=== PATIENT | male | born 1970 | race Caucasian/White ===

== ENCOUNTER 2023-09-30 08:14 | Day surgery (SDC) | payer BC ==
[2023-09-27 14:43] VITALS: BMI 32.1
[2023-09-30 10:08] VITALS: TEMP 98
[2023-09-30 10:10] VITALS: RESP 18
[2023-09-30 10:11] VITALS: BP 122/80; PULSE 82
== END 2023-09-30 10:39 | disposition home or self-care (01) ==
LOC: FASU-ENDO 08:14
PROVIDERS: ATTEND Internal Medicine Gastroenterology
PROC: 0DBL8ZX Excision of Transverse Colon, Via Natural or Artificial Opening Endoscopic, Diagnostic (ICD-10-PCS; 2023-09-30)
PROC: 0DBN8ZX Excision of Sigmoid Colon, Via Natural or Artificial Opening Endoscopic, Diagnostic (ICD-10-PCS; principal; 2023-09-30 09:34)
DX: Z12.11 Encounter for screening for malignant neoplasm of colon (principal); K63.5 Polyp of colon; K57.30 Diverticulosis of large intestine without perforation or abscess without bleeding; Z86.010 Personal history of colon polyps; Z83.719 Family history of colon polyps, unspecified
CPT/HCPCS: 88305-TC